=== PATIENT | male | born 1945 | race Caucasian/White ===

== ENCOUNTER → 2017-09-12 08:11 | Outpatient (CLI) | payer MEDICARE | END | disposition home or self-care (01) | LOC: D.NM 08:11 | DX: M25.551 Pain in right hip (principal) ==

== ENCOUNTER → 2018-01-02 11:00 | Outpatient (CLI) | payer MEDICARE ==
[2018-01-02 11:28] LABS: BASOPHILS 0.6 % (0-2); EOSINOPHILS 2.8 % (0-7); HEMATOCRIT 45.8 % (42.0-54.0); HEMOGLOBIN 15.2 g/dL (13.5-17.5); IMMATURE GRANULOCYTES 0.8 % (0-5); LYMPHOCYTES 32.5 % (15-50); MCH 33.8 pg (26.0-34.0); MCHC 33.2 g/dL (31.0-37.0); MCV 101.8 fL (80.0-100.0); MEAN PLATELET VOLUME 9.6 fL (7.4-10.4); MONOCYTES 9.9 % (2-11); NEUTROPHILS 53.4 % (40-80); PLATELET COUNT 216 10x3/uL (130-400); RDW 14.1 % (11.5-14.5); WBC 6.5 10x3/uL (4.8-10.8)
[2018-01-02 12:37] LABS: ERYTHROCYTE SEDIMENTATION RATE 10 mm/hr (0-20)
== END | disposition home or self-care (01) ==
LOC: D.LAB 11:00
PROVIDERS: Orthopaedic Surgery
DX: M25.551 Pain in right hip (principal)